=== PATIENT | female | born 2000 | race Asian ===

== ENCOUNTER 2025-07-07 06:23 | Outpatient (CLI) | payer OTHER, SELFPAY | END 2025-07-07 06:24 | disposition home or self-care (01) | LOC: AMB 07-09 07:56 | PROVIDERS: Visit Provider Family Medicine | DX: S09.90XA Unspecified injury of head, initial encounter (principal); V44.5XXA Car driver injured in collision with heavy transport vehicle or bus in traffic accident, initial encounter; Y92.410 Unspecified street and highway as the place of occurrence of the external cause | CPT/HCPCS: A0998 ==